=== PATIENT | male | born 1940 | race Caucasian/White ===

== ENCOUNTER → 2016-09-22 | Outpatient (CLI) | payer MEDICARE ==
[~2016-09-22] MED LIST: ASPI81 PO; CIAL20TA PO; DIPH1TAB36 PO; FLON0.053; MELO15TA2 PO; SAWPOW PO; TAB-TAB PO; TAMS0.4C67 PO; TRIBENZOR PO; ZOCO40TA PO; ZYRT10TA12 PO; [UNRECOGNIZED DRUG - CODE] XX
[2016-09-22 08:57] LABS: BASOPHIL % 0.9 % (0.0-2.0); EOSINOPHIL # 0.2 TH/MM3 (0-0.4); EOSINOPHIL % 3.5 % (0.0-4.0); HEMATOCRIT 44.7 % (39.0-51.0); HEMO FLAGS DIFF FINAL; LYMPH % 25.8 % (9.0-44.0); LYMPHOCYTE # 1.3 TH/MM3 (1.0-4.8); MEAN CELL VOLUME 90.9 FL (80.0-100.0); MEAN CORPUSCULAR HEMOGLOBIN 29.5 PG (27.0-34.0); MEAN CORPUSCULAR HGB CONC 32.4 % (32.0-36.0); MONO % 8.1 % (0.0-8.0); NEUT % 61.7 % (16.0-70.0); PLATELET COUNT 177 TH/MM3 (150-450); RED BLOOD COUNT 4.92 MIL/MM3 (4.50-5.90); RED CELL DISTRIBUTION WIDTH 12.5 % (11.6-17.2); WHITE BLOOD COUNT 4.9 TH/MM3 (4.0-11.0)
[2016-09-22 10:02] LABS: ALKALINE PHOSPHATASE 59 U/L (45-117); ALT (GPT) 25 U/L (12-78); ANION GAP 6 MEQ/L (5-15); AST (GOT) 23 U/L (15-37); BLOOD UREA NITROGEN 13 MG/DL (7-18); CHLORIDE 103 MEQ/L (98-107); GLOMERULAR FILTRATION RATE 70 ML/MIN (>89); GLUCOSE,FASTING 101 MG/DL (74-99); HDL CHOLESTEROL 62.2 MG/DL (40.0-60.0); LDL CHOLESTEROL 60 MG/DL (0-99); POTASSIUM 3.8 MEQ/L (3.5-5.1); SODIUM (NA) 142 MEQ/L (136-145); TOTAL BILIRUBIN ADULT 0.9 MG/DL (0.2-1.0)
[2016-09-22 10:37] LABS: HEMOGLOBIN A1a 0.7 %; HEMOGLOBIN A1b 1.5 %; HEMOGLOBIN Ao 86.7 %; HEMOGLOBIN LA1C 1.8 %; HEMOGLOBIN P3 3.4 %
== END ==
LOC: OLAB 07:29
PROVIDERS: ATTEND Family Medicine
DX: C61 Malignant neoplasm of prostate (principal); I10 Essential (primary) hypertension; E78.2 Mixed hyperlipidemia; R73.01 Impaired fasting glucose; J30.1 Allergic rhinitis due to pollen
CPT/HCPCS: 36415; 80053; 80061; 83036; 84153; 85025